=== PATIENT | male | born 1990 | race Caucasian/White ===

== ENCOUNTER 2019-01-31 18:49 | Emergency (ER) | payer OTHER, SELFPAY ==
[2019-01-31] MEDS ORDERED: Hydromorphone 1 mg/ml Ampule IV ONE (19:14)
[2019-01-31] MEDS ORDERED: Sodium Chloride 0.9% 1000 ML 1,000 ML IV STA (19:14)
[2019-01-31] MEDS ORDERED: Zofran 4 MG/2 ML VIAL IV ONE (19:14)
[2019-01-31] MEDS ORDERED: PROTONIX 40 MG IV IV ONE ×2 (19:14→19:33)
[2019-01-31] MEDS ORDERED: THORAZINE 50 MG*** 50 MG in Sodium Chloride 0.9% 100 ML IVPB 100 ML IV ONE (19:14)
[2019-01-31 19:22] LABS: Absolute Neutrophil Ct (ANC) 5.08 (1.4-6.9); BASOPHIL % 0.3 % (0.0-0.4); Basophil (Absolute #) 0.03 (0-0.4); Eosinophil % 6.4 % (0.00-5.0); Eosinophil (Absolute #) 0.67 (0-0.5); Hematocrit 44.1 % (42-50); Hemoglobin 14.8 gm/dl (12.5-18.0); Lymphocyte (Absolute #) 3.66 (1.0-4.6); Lymphocytes % 34.9 % (24.0-44.0); Mean Cell Volume 86.6 fl (78-100); Mean Corpuscular Hemoglobin 29.1 pg (26-32); Mean Corpuscular Hgb Concent. 33.6 g/dl (32-36); Mean Platelet Volume 12.8 fl (6-9.5); Monocyte (Absolute #) 1.04 (0.0-1.3); Monocytes % 9.9 % (0.0-12.0); Neutrophil % 48.5 % (36.0-66.0); Platelet Count 193 K/mm3 (150-450); Red Blood Count 5.09 M/mm3 (4.1-5.6); White Blood Count 10.5 K/mm3 (4.0-10.5)
[2019-01-31 19:33] LABS: ALBUMIN 4.3 g/dL (3.5-5.0); ALKALINE PHOSPHATASE 108 U/L (38-126); AMYLASE 60 U/L (30-110); ANION GAP 13.4 MEQ/L (5-15); BLOOD UREA NITROGEN 12 mg/dL (9-20); CHLORIDE 105 mmol/L (98-107); Calcium 9.8 mg/dL (8.4-10.2); Carbon Dioxide 27 mmol/L (22-30); Creatinine 1 0.77 mg/dL (0.66-1.25); Glucose 82 mg/dL (74-106); LIPASE 84 U/L (23-300); Potassium 3.8 mmol/L (3.5-5.1); SGOT/AST 45 U/L (17-59); SGPT/ALT 139 U/L (0-50); SODIUM 142 mmol/L (137-145); Total Protein 7.9 g/dL (6.3-8.2)
[2019-01-31] MEDS ORDERED: Hydromorphone 1 mg/ml Ampule ONE (19:33)
[2019-01-31] MEDS ORDERED: THORAZINE 50 MG ONE (19:33)
[2019-01-31] MEDS ORDERED: Sodium Chloride 0.9% 100 ML IVPB 100 ML IV ONE (19:34)
[2019-01-31] MEDS ORDERED: Zofran 4 MG/2 ML VIAL ONE (19:55)
[2019-01-31 20:38] LABS: Amourphous Crystal FEW /HPF (NEGATIVE); Appearance CLEAR (CLEAR); Bacteria NONE SEEN /HPF (NEGATIVE); Bilirubin NEGATIVE (NEGATIVE); Blood NEGATIVE Ery/ul (0-5); Glucose NEGATIVE (NEGATIVE); Ketones NEGATIVE (NEGATIVE); Leukocyte Esterase NEGATIVE (NEGATIVE); Nitrite NEGATIVE (NEGATIVE); Protein,Urine Dip NEGATIVE (Negative); Specific Gravity 1.013 (1.005-1.025); Urobilinogen 4 mg/dL (0-1)
[2019-01-31 20:49] LABS: Amphetamine,Urine NEGATIVE (NEGATIVE); Barbiturate,Urine NEGATIVE (NEGATIVE); Benzodiazepine,Urine NEGATIVE (NEGATIVE); Cocaine,Urine NEGATIVE (NEGATIVE); Methadone,Urine NEGATIVE (NEGATIVE); Opiate,Urine NEGATIVE (NEGATIVE); PCP,Urine NEGATIVE (NEGATIVE); THC,Urine POSITIVE (NEGATIVE)
[2019-01-31 21:08] VITALS: BP 116/53; PULSE 69; O2SAT 95
--- NOTE | 2019-01-31 21:18 | ERPHSYRPT ---
- History of Present Illness Time Seen by Provider: 01/31/19 18:55 Historian: patient, family Exam Limitations: no limitations Patient Subjective Stated Complaint: Pt states "I think my gall bladder is acting up again." Triage Nursing Assessment: Pt presented alert and oriented X 3, skin pwd. PT ambulates with an upright steady gait holding his right lower abdomen. Physician History: patient is a 28-year-old white male with a complaint of right upper quadrant pain reason and intermittent leg on for 4-5 years. He states he had a gallbladder ultrasound at this facility some time ago which showed an enlarged gallbladder but that cannot be found in her search of the records. He was seen yesterday at [facility] and had an non-contrast CT of the abdomen which did not clearly DM to delineate the biliary tree or the pancreas. He's had nausea vomiting with bilious emesis he had some chills fever and sweats. He was told to drink admitted at cyclical vomiting syndrome because he smokes pot Timing/Duration: day(s) Activities at Onset: none Quality: cramping Abdominal Pain Onset Location: RUQ, epigastric Pain Radiation: no radiation Severity of Pain-Max: moderate Severity of Pain-Current: moderate Modifying Factors: Improves With: eating Associated Symptoms: nausea, vomiting ( ibuprofen and), No diarrhea (is a 9 and the in one or and and and) Allergies/Adverse Reactions: tramadol Adverse Reaction (Intermediate, Verified 06/20/15 14:23) Nausea Home Medications: No Home Meds [No Home Meds] 1 ea UD 06/20/15 [History] Hx Tetanus, Diphtheria Vaccination/Date Given: Yes Hx Influenza Vaccination/Date Given: No Hx Pneumococcal Vaccination/Date Given: No Immunizations Up to Date: Yes - Review of Systems Constitutional: No Fever, No Chills Eyes: No Symptoms Ears, Nose, & Throat: No Symptoms Respiratory: No Cough, No Dyspnea Cardiac: No Chest Pain, No Edema, No Syncope Abdominal/Gastrointestinal: Abdominal Pain, Nausea, Vomiting, No Diarrhea Genitourinary Symptoms: No Dysuria Musculoskeletal: No Back Pain, No Neck Pain Skin: No Rash Neurological: No Dizziness, No Focal Weakness, No Sensory Changes Psychological: No Symptoms Endocrine: No Symptoms All Other Systems: Reviewed and Negative - Past Medical History Pertinent Past Medical History: Yes Neurological History: No Pertinent History ENT History: No Pertinent History Cardiac History: No Pertinent History Respiratory History: Asthma Endocrine Medical History: No Pertinent History Musculoskeletal History: No Pertinent History GI Medical History: No Pertinent History History: No Pertinent History Psycho-Social History: Depression - Past Surgical History Past Surgical History: No - Social History Smoking Status: Current every day smoker How long have you smoked: years Exposure to second hand smoke: Yes Drug Use: marijuana Patient Lives Alone: No - Nursing Vital Signs Nursing Vital Signs: Initial Vital Signs Temperature 98.6 F 01/31/19 18:54 Pulse Rate 82 01/31/19 18:54 Respiratory Rate 18 01/31/19 18:54 Blood Pressure 147/88 01/31/19 18:54 O2 Sat by Pulse Oximetry 99 01/31/19 18:54 Pain Scale Pain Intensity 10 - Physical Exam General Appearance: mild distress, alert Eye Exam: PERRL/EOMI, eyes nml inspection Ears, Nose, Throat Exam: normal ENT inspection, pharynx normal, moist mucous membranes Neck Exam: normal inspection, non-tender, supple, full range of motion Respiratory Exam: normal breath sounds, lungs clear, No respiratory distress Cardiovascular Exam: regular rate/rhythm, normal heart sounds Gastrointestinal/Abdomen Exam: soft, tenderness, No distention, No mass, No guarding, No rebound Back Exam: normal inspection, normal range of motion, No CVA tenderness, No vertebral tenderness Extremity Exam: normal inspection, normal range of motion, pelvis stable Neurologic Exam: alert, oriented x 3, cooperative, normal mood/affect, nml cerebellar function, sensation nml, No motor deficits Skin Exam: normal color, warm, dry SpO2: 95 - Course Nursing assessment & vital signs reviewed: Yes - CT Exams Abdomen/Pelvis CT Interpretation: Tele-radiologist Report, Other (a CT scan was repeated with IV contrast to better delineate the biliary tree and the pancreas) Ordered Tests: Active Orders 24 hr Category Date Time Status IV Insertion STAT Care 01/31/19 19:14 Active ABDOMEN AND PELVIS W CONTRAST [CT] Stat Exams 01/31/19 19:28 Taken AMYLASE Stat Lab 01/31/19 19:19 Completed CBC W DIFF Stat Lab 01/31/19 19:19 Completed CMP Stat Lab 01/31/19 19:19 Completed LIPASE Stat Lab 01/31/19 19:19 Completed UA W/RFX UR CULTURE Stat Lab 01/31/19 20:29 Completed Urine Triage Profile Stat Lab 01/31/19 20:29 Completed Medication Summary Discontinued Medications Generic Name Dose Route Start Last Admin Trade Name Jasbirq PRN Reason Stop Dose Admin Chlorpromazine HCl Confirm 01/31/19 19:33 Thorazine 50 Mg Administered 01/31/19 19:34 Dose 50 mg .ROUTE .STK-MED ONE Hydromorphone HCl 1 mg 01/31/19 19:14 01/31/19 19:47 Hydromorphone 1 Mg/Ml Ampule IV 01/31/19 19:15 1 mg STAT ONE Administration Hydromorphone HCl Confirm 01/31/19 19:33 Hydromorphone 1 Mg/Ml Ampule Administered 01/31/19 19:34 Dose 1 mg .ROUTE .STK-MED ONE Chlorpromazine HCl 50 mg/ 102 mls @ 100 mls/hr 01/31/19 19:14 01/31/19 19:45 Sodium Chloride IV 01/31/19 20:15 100 mls/hr STAT ONE Administration Sodium Chloride 1,000 mls @ 999 mls/hr 01/31/19 19:14 01/31/19 19:47 Sodium Chloride 0.9% 1000 Ml IV 01/31/19 20:14 999 mls/hr .Q1H1M STA Administration Sodium Chloride Confirm 01/31/19 19:34 Sodium Chloride 0.9% 100 Ml Ivpb Administered 01/31/19 19:35 Dose 100 mls @ ud IV .STK-MED ONE Ondansetron HCl 4 mg 01/31/19 19:14 01/31/19 19:57 Zofran 4 Mg/2 Ml Vial IV 01/31/19 19:15 4 mg STAT ONE Administration Ondansetron HCl Confirm 01/31/19 19:55 Zofran 4 Mg/2 Ml Vial Administered 01/31/19 19:56 Dose 4 mg .ROUTE .STK-MED ONE Pantoprazole Sodium 40 mg 01/31/19 19:14 01/31/19 19:46 Protonix 40 Mg Iv IV 01/31/19 19:15 40 mg STAT ONE Administration Pantoprazole Sodium Confirm 01/31/19 19:33 Protonix 40 Mg Iv Administered 01/31/19 19:34 Dose 40 mg IV .STK-MED ONE Lab/Rad Data: Laboratory Result Diagrams 01/31/19 19:19 01/31/19 19:19 Laboratory Results 01/31/19 01/31/19 01/31/19 Range/Units 20:29 20:29 19:19 WBC (4.0-10.5) K/mm3 RBC (4.1-5.6) M/mm3 Hgb (12.5-18.0) gm/dl Hct (42-50) % MCV (78-100) fl MCH (26-32) pg MCHC (32-36) g/dl RDW (11.5-14.0) % Plt Count (150-450) K/mm3 MPV (6-9.5) fl Gran % (36.0-66.0) % Eos # (Auto) (0-0.5) Absolute Lymphs (auto) (1.0-4.6) Absolute Monos (auto) (0.0-1.3) Lymphocytes % (24.0-44.0) % Monocytes % (0.0-12.0) % Eosinophils % (0.00-5.0) % Basophils % (0.0-0.4) % Absolute Granulocytes (1.4-6.9) Basophils # (0-0.4) Sodium 142 (137-145) mmol/L Potassium 3.8 (3.5-5.1) mmol/L Chloride 105 (98-107) mmol/L Carbon Dioxide 27 (22-30) mmol/L Anion Gap 13.4 (5-15) MEQ/L BUN 12 (9-20) mg/dL Creatinine 0.77 (0.66-1.25) mg/dL Estimated GFR > 60.0 ML/MIN Glucose 82 (74-106) mg/dL Calcium 9.8 (8.4-10.2) mg/dL Total Bilirubin 1.00 (0.2-1.3) mg/dL AST 45 (17-59) U/L ALT 139 H (0-50) U/L Alkaline Phosphatase 108 (38-126) U/L Serum Total Protein 7.9 (6.3-8.2) g/dL Albumin 4.3 (3.5-5.0) g/dL Amylase 60 (30-110) U/L Lipase 84 (23-300) U/L Urine Color YELLOW (YELLOW) Urine Appearance CLEAR (CLEAR) Urine pH 8.0 (5-6) Ur Specific [place] 1.013 (1.005-1.025) Urine Protein NEGATIVE (Negative) Urine Ketones NEGATIVE (NEGATIVE) Urine Blood NEGATIVE (0-5) Umer/ul Urine Nitrite NEGATIVE (NEGATIVE) Urine Bilirubin NEGATIVE (NEGATIVE) Urine Urobilinogen 4 (0-1) mg/dL Ur Leukocyte Esterase NEGATIVE (NEGATIVE) Urine WBC (Auto) 6-10 (0-5) /HPF Urine RBC (Auto) NONE (0-2) /HPF U Epithel Cells (Auto) NONE (FEW) /HPF Urine Bacteria (Auto) NONE SEEN (NEGATIVE) /HPF Amorphous Crystals FEW (NEGATIVE) /HPF Urine Culture Reflexed NO (NO) Urine Glucose NEGATIVE (NEGATIVE) mg/dL Urine Opiates Level NEGATIVE (NEGATIVE) Ur Methadone NEGATIVE (NEGATIVE) Urine Barbiturates NEGATIVE (NEGATIVE) Ur Phencyclidine (PCP) NEGATIVE (NEGATIVE) Urine Amphetamine NEGATIVE (NEGATIVE) U Benzodiazepine Level NEGATIVE (NEGATIVE) Urine Cocaine NEGATIVE (NEGATIVE) Urine Marijuana (THC) POSITIVE (NEGATIVE) 01/31/19 Range/Units 19:19 WBC 10.5 (4.0-10.5) K/mm3 RBC 5.09 (4.1-5.6) M/mm3 Hgb 14.8 (12.5-18.0) gm/dl Hct 44.1 (42-50) % MCV 86.6 (78-100) fl MCH 29.1 (26-32) pg MCHC 33.6 (32-36) g/dl RDW 15.0 H (11.5-14.0) % Plt Count 193 (150-450) K/mm3 MPV 12.8 H (6-9.5) fl Gran % 48.5 (36.0-66.0) % Eos # (Auto) 0.67 H (0-0.5) Absolute Lymphs (auto) 3.66 (1.0-4.6) Absolute Monos (auto) 1.04 (0.0-1.3) Lymphocytes % 34.9 (24.0-44.0) % Monocytes % 9.9 (0.0-12.0) % Eosinophils % 6.4 H (0.00-5.0) % Basophils % 0.3 (0.0-0.4) % Absolute Granulocytes 5.08 (1.4-6.9) Basophils # 0.03 (0-0.4) Sodium (137-145) mmol/L Potassium (3.5-5.1) mmol/L Chloride (98-107) mmol/L Carbon Dioxide (22-30) mmol/L Anion Gap (5-15) MEQ/L BUN (9-20) mg/dL Creatinine (0.66-1.25) mg/dL Estimated GFR ML/MIN Glucose (74-106) mg/dL Calcium (8.4-10.2) mg/dL Total Bilirubin (0.2-1.3) mg/dL AST (17-59) U/L ALT (0-50) U/L Alkaline Phosphatase (38-126) U/L Serum Total Protein (6.3-8.2) g/dL Albumin (3.5-5.0) g/dL Amylase (30-110) U/L Lipase (23-300) U/L Urine Color (YELLOW) Urine Appearance (CLEAR) Urine pH (5-6) Ur Specific [place] (1.005-1.025) Urine Protein (Negative) Urine Ketones (NEGATIVE) Urine Blood (0-5) Umer/ul Urine Nitrite (NEGATIVE) Urine Bilirubin (NEGATIVE) Urine Urobilinogen (0-1) mg/dL Ur Leukocyte Esterase (NEGATIVE) Urine WBC (Auto) (0-5) /HPF Urine RBC (Auto) (0-2) /HPF U Epithel Cells (Auto) (FEW) /HPF Urine Bacteria (Auto) (NEGATIVE) /HPF Amorphous Crystals (NEGATIVE) /HPF Urine Culture Reflexed (NO) Urine Glucose (NEGATIVE) mg/dL Urine Opiates Level (NEGATIVE) Ur Methadone (NEGATIVE) Urine Barbiturates (NEGATIVE) Ur Phencyclidine (PCP) (NEGATIVE) Urine Amphetamine (NEGATIVE) U Benzodiazepine Level (NEGATIVE) Urine Cocaine (NEGATIVE) Urine Marijuana (THC) (NEGATIVE) - Progress Progress: improved - Departure Departure Disposition: Home Clinical Impression: Enteritis Condition: Stable Critical Care Time: No Referrals: DOCTOR,NO FAMILY [Primary Care Provider] - Prescriptions: Hydrocodone/APAP 5-325 Tab^^^ [[place] 5-325 Tablet^^^] 1 tab PO Q6HPRN PRN #10 tablet MDD 6 PRN Reason: Pain Ondansetron ODT 4 MG [Zofran Odt 4 mg] 4 mg PO Q6H PRN PRN #10 tab.rapdis PRN Reason: Vomiting Metronidazole 500 mg [Flagyl 500 MG] 500 mg PO TID #21 tablet
--- NOTE | 2019-02-01 08:46 | XRAY ---
Indication: Right upper quadrant pain 1 week. Nausea, vomiting, and diarrhea. Multiple contiguous axial images obtained through the abdomen and pelvis using 80 cc Isovue 370 contrast only. Comparison: February 28, 2012. Lung bases demonstrates minimal bilateral dependent atelectasis. Heart is not enlarged. Stomach is distended with food/fluid. Noncontrasted stomach and bowel loops appear nonobstructed. Normal appendix. No free fluid/air. Remaining liver, gallbladder, pancreas, spleen, adrenal glands, kidneys, ureters, bladder, and aorta appear unremarkable. No pathologic retroperitoneal lymphadenopathy. Osseous structures intact. Impression: CT abdomen/pelvis with contrast exam is negative. Comment: Preliminary interpretation was made by [facility]. No critical discrepancy. CT DI 3.16
== END 2019-01-31 21:43 | disposition home or self-care (01) ==
LOC: ED 18:49
DX: K52.9 Noninfective gastroenteritis and colitis, unspecified (principal)
CPT/HCPCS: 36000; 36415; 74177; 80053; 80307; 81001; 82150; 83690; 85025; 96360; 96361; 96365; 96374; 96375; 99284; J1170; J2405; J3230

== ENCOUNTER 2022-02-28 15:15 | Emergency (ER) | payer MEDICAID, OTHER ==
--- NOTE | 2022-02-28 15:21 | ERPHSYRPT ---
- History of Present Illness Time Seen by Provider: 02/28/22 15:21 Source: patient Exam Limitations: no limitations Physician History: This is a 31-year-old white male who is a little lethargic but arousable who has not been eating or drinking well last 4 days. He has had intermittent fevers. He states he has a headache and he aches all over. He has no known exposures to individuals with similar symptoms or individuals that have been diagnosed with flus of any type. He has no chest pain. He has no complaints of shortness of breath and he has no abdominal pain. Timing/Duration: day(s) (4), worse Severity: moderate Associated Symptoms: headaches, loss of appetite, weakness, No shortness of breath, No chest pain Allergies/Adverse Reactions: tramadol Adverse Reaction (Intermediate, Verified 02/28/22 15:24) Nausea Hx Tetanus, Diphtheria Vaccination/Date Given: Yes Hx Influenza Vaccination/Date Given: No Hx Pneumococcal Vaccination/Date Given: No Travel Risk - International Travel Have you traveled outside of the country in past 3 weeks: No - Coronavirus Screening Are you exhibiting any of the following symptoms?: Yes Symptoms: Fever, Headaches/Body Aches/Fatigue Close contact with a COVID-19 positive Pt in past 14-21 Days: No - Review of Systems Constitutional: Weakness Eyes: No Symptoms Ears, Nose, & Throat: No Symptoms Respiratory: No Symptoms Cardiac: No Symptoms Abdominal/Gastrointestinal: Diarrhea Genitourinary Symptoms: No Symptoms Musculoskeletal: Arthralgias, Myalgias Skin: Rash (Couple of days ago. Has now resolved) Neurological: Headache Psychological: No Symptoms Endocrine: No Symptoms Hematologic/Lymphatic: No Symptoms Immunological/Allergic: No Symptoms All Other Systems: Reviewed and Negative - Past Medical History Pertinent Past Medical History: Yes Neurological History: No Pertinent History ENT History: No Pertinent History Cardiac History: No Pertinent History Respiratory History: Asthma Endocrine Medical History: No Pertinent History Musculoskeletal History: No Pertinent History GI Medical History: No Pertinent History History: No Pertinent History Psycho-Social History: Depression - Past Surgical History Past Surgical History: No - Social History Smoking Status: Current every day smoker How long have you smoked: years Exposure to second hand smoke: Yes Drug Use: marijuana Patient Lives Alone: No - Nursing Vital Signs Nursing Vital Signs: Initial Vital Signs Temperature 98.4 F 02/28/22 15:26 Pulse Rate 75 02/28/22 15:26 Respiratory Rate 18 02/28/22 15:26 Blood Pressure 127/63 02/28/22 15:26 O2 Sat by Pulse Oximetry 98 02/28/22 15:26 Pain Scale Pain Intensity 5 - Physical Exam General Appearance: lethargy (Mild but arousable), thin Eye Exam: PERRL/EOMI, eyes nml inspection Ears, Nose, Throat Exam: normal ENT inspection, dry mucous membranes Neck Exam: normal inspection, non-tender, supple, full range of motion Respiratory Exam: normal breath sounds, lungs clear, airway intact, No chest tenderness, No respiratory distress Cardiovascular Exam: regular rate/rhythm, normal heart sounds, normal peripheral pulses Gastrointestinal/Abdomen Exam: soft, normal bowel sounds, No tenderness Rectal Exam: not done Back Exam: normal inspection, normal range of motion, No CVA tenderness, No vertebral tenderness Extremity Exam: normal inspection, normal range of motion, pelvis stable Neurologic Exam: oriented x 3, cooperative, prosthetic dentist II-XII nml as tested, other (Generalized weakness and mild lethargy. He is arousable) Skin Exam: normal color, warm, dry Lymphatic Exam: No adenopathy SpO2 Interpretation: normal O2 Delivery: Room Air - Course Nursing assessment & vital signs reviewed: Yes Ordered Tests: Active Orders 24 hr Category Date Time Status Clean Catch Urine Specimen STAT Care 02/28/22 15:40 Active IV Insertion STAT Care 02/28/22 15:35 Active Pulse Oximetry (ED) STAT Care 02/28/22 15:35 Active BLOOD CULTURE Stat Lab 02/28/22 15:35 Ordered CBC W DIFF Stat Lab 02/28/22 15:35 Ordered CMP Stat Lab 02/28/22 15:35 Ordered Lactic Acid Stat Lab 02/28/22 15:35 Ordered [place] Screen Stat Lab 02/28/22 Ordered UA W/RFX CULTURE Stat Lab 02/28/22 Ordered Urine Triage Profile Stat Lab 02/28/22 Ordered Medication Summary Generic Name Dose Route Start Last Admin Trade Name Freq PRN Reason Stop Dose Admin Sodium Chloride 1,000 mls @ 999 mls/hr 02/28/22 15:35 02/28/22 16:06 Sodium Chloride 0.9% 1000 Ml IV 02/28/22 16:35 Not Given .Q1H1M STA Discontinued Medications Generic Name Dose Route Start Last Admin Trade Name Freq PRN Reason Stop Dose Admin Ondansetron HCl 4 mg 02/28/22 15:35 02/28/22 16:07 Ondansetron Hcl 4 Mg/2 Ml Vial IV 02/28/22 15:36 Not Given STAT STA Lab/Rad Data: Laboratory Results 02/28/22 Range/Units 15:33 Influenza Type A Ag NEGATIVE (NEGATIVE) Influenza Type B Ag NEGATIVE (NEGATIVE) RSV (PCR) NEGATIVE (Negative) SARS-CoV-2 (PCR) POSITIVE A (NEGATIVE) Group A Strep Antibody NOT DETECTED (NEGATIVE) - Progress Progress: unchanged Progress Note: 02/28/22 15:46 Patient refused placement of IV 02/28/22 15:50 I asked the patient a second time whether or not he would allow us to place an IV. I discussed the risks of placing an IV which are very low. I also discussed the benefits of placing an IV and him. He refuses. He does not want any blood drawn. He will stay until results of the viral swabs and strep test. We will have him sign refusal of care form. 02/28/22 16:32 Medical decision making: This patient has a COVID-19 infection. He does not want an IV placed. He does not want to be admitted or transferred. He is refusing any blood work. I did provide him with instructions for pain and fever control and sent a prescription of Zofran to his pharmacy. Patient will sign out AGAINST MEDICAL ADVICE as well as a refusal of care and work-up here in the emergency department other than the strep and viral swabs. Counseled pt/family regarding: lab results, diagnosis - Departure Departure Disposition: AMA (covid) Clinical Impression: COVID-19 Condition: Fair Critical Care Time: No Referrals: DARIEN MOURA MD [Primary Care Provider] - Follow up/PCP as directed Additional Instructions: Drink plenty of liquids. Use Tylenol and ibuprofen for fever and pain control. Return to the emergency department if symptoms persist or worsen. Prescriptions: Ondansetron ODT 4 MG [Zofran Odt 4 mg] 4 mg PO Q6H PRN PRN #10 tablet PRN Reason: Vomiting
[2022-02-28 15:33] VITALS: PULSE 75; O2SAT 98
[2022-02-28] MEDS ORDERED: Zofran 4 MG/2 ML VIAL IV STA (15:35)
[2022-02-28] MEDS ORDERED: Sodium Chloride 0.9% 1000 ML 1,000 ML IV STA (15:35)
[2022-02-28 16:11] LABS: Group A Strep NOT DETECTED (NEGATIVE)
[2022-02-28 16:22] VITALS: BP 134/81
[2022-02-28 16:22] LABS: INFLUENZA A NEGATIVE (NEGATIVE); INFLUENZA B NEGATIVE (NEGATIVE); RESPIRATORY SYNCTIAL VIRUS NEGATIVE (Negative)
[2022-02-28 16:27] LABS: SARS-CoV-2 Xpert Express POSITIVE (NEGATIVE)
== END 2022-02-28 16:50 | disposition left against medical advice (07) ==
LOC: ED 15:15
DX: U07.1 COVID-19 (principal); R50.9 Fever, unspecified; M79.10 Myalgia, unspecified site
CPT/HCPCS: 0241U; 87651; 94760; 99283

== ENCOUNTER 2022-04-05 13:11 | Emergency (ER) | payer MEDICAID ==
--- NOTE | 2022-04-05 13:50 | ERPHSYRPT ---
- History of Present Illness Source: patient, family Exam Limitations: no limitations Physician History: INdependent interviews with pt and family. collaborating Hx below: Pt is 31 yr old recent paraplegic, learning to ambulate again, and was trying zayas a few days but it catches and causes trauma by catheter to urethra. He has been straight cathing OK prior but got UTIs. On meds now for Tx with Dr. Alexis. No abd pain no fever, No N or V. no other c/o of injuries. minimal tenderness at urethra no erythema, no swelling. no mass or peritoneal signs or distension penis feels normal to palp without corpora defects no bruising. testes normal to palp. Timing/Duration: yesterday Activites at Onset: other (walkimng) Quality: burning Onset Location: urethral Pain Radiation: urethral Severity of Pain-Max: moderate Severity of Pain-Current: moderate Modifying Factors: Improves With: walking Associated Symptoms: No abdominal pain, No fever, No diaphoresis, No urinary frequency Prior abdominal problems: none Sexual intercourse history: non-contributory Allergies/Adverse Reactions: tramadol Adverse Reaction (Intermediate, Verified 04/05/22 13:44) Nausea Home Medications: Doxycycline Hyclate 100 mg [Vibramycin 100 MG] 100 mg PO BID 04/02/22 [History] Iron,Carb/Vit C/Vit B12/Folic [Iron 100 Plus Tablet] 1 each PO DAILY 04/02/22 [History] Mecobalamin [B12 Active] 500 mcg PO DAILY 04/02/22 [History] rifAMPin [Rifampin] 300 mg PO BID 04/02/22 [History] Ciprofloxacin [Cipro 500 MG] 1 tab PO BID 04/05/22 [History] Tamsulosin HCl 0.4 mg [Flomax 0.4 MG] 1 cap PO DAILY 04/05/22 [History] Hx Tetanus, Diphtheria Vaccination/Date Given: Yes Hx Influenza Vaccination/Date Given: No Hx Pneumococcal Vaccination/Date Given: No Travel Risk - Vaccine Status Have you recieved a Covid-19 vaccination: No - Past Medical History Pertinent Past Medical History: Yes Neurological History: No Pertinent History ENT History: No Pertinent History Cardiac History: No Pertinent History Respiratory History: Asthma Endocrine Medical History: No Pertinent History Musculoskeletal History: No Pertinent History GI Medical History: No Pertinent History History: No Pertinent History Psycho-Social History: Depression Other Medical History: parapelgic - Past Surgical History Past Surgical History: No Neuro Surgical History: No Pertinent History Cardiac: No Pertinent History Respiratory: No Pertinent History Gastrointestinal: No Pertinent History Genitourinary: No Pertinent History Musculoskeletal: No Pertinent History Male Surgical History: No Pertinent History - Social History Smoking Status: Current every day smoker How long have you smoked: years Exposure to second hand smoke: Yes Drug Use: marijuana Patient Lives Alone: No - Review of Systems Constitutional: No Fever, No Chills Eyes: No Symptoms Ears, Nose, & Throat: No Symptoms Respiratory: No Cough, No Dyspnea Cardiac: No Chest Pain, No Edema, No Syncope Abdominal/Gastrointestinal: No Abdominal Pain, No Nausea, No Vomiting, No Diarr hea Genitourinary Symptoms: Other (urethral pain after trauma), No Dysuria Musculoskeletal: No Back Pain, No Neck Pain Skin: No Symptoms, No Rash Neurological: No Dizziness, No Focal Weakness, No Sensory Changes Psychological: No Symptoms Endocrine: No Symptoms Hematologic/Lymphatic: No Symptoms Immunological/Allergic: No Symptoms All Other Systems: Reviewed and Negative - Nursing Vital Signs Nursing Vital Signs: Initial Vital Signs Temperature 98 F 04/05/22 13:21 Pulse Rate 97 H 04/05/22 13:21 Respiratory Rate 18 04/05/22 13:21 Blood Pressure 153/96 04/05/22 13:21 O2 Sat by Pulse Oximetry 99 04/05/22 13:21 Pain Scale Pain Intensity 6 - Physical Exam General Appearance: no apparent distress, alert Eye Exam: PERRL/EOMI Ears, Nose, Throat Exam: pharynx normal, moist mucous membranes Neck Exam: normal inspection, supple Respiratory Exam: normal breath sounds, lungs clear Cardiovascular Exam: regular rate/rhythm, No edema Gastrointestinal/Abdomen Exam: soft, No tenderness Rectal Exam: deferred Male Genital Exam: normal genitalia, no hernia, No epididymal tenderness, No hydrocele, No inguinal tenderness, No scrotum tenderness (R), No scrotum tenderness (L), No testicular tenderness (R), No testicular tenderness (L), No urethral discharge, No scrotal swellling Back Exam: normal inspection, No CVA tenderness Extremity Exam: normal inspection, normal range of motion, No pedal edema Neurologic Exam: alert, oriented x 3, cooperative, sensation nml, No motor deficits Skin Exam: normal color, warm, dry, No rash SpO2 Interpretation: normal SpO2: 98 O2 Delivery: Room Air - Course Nursing assessment & vital signs reviewed: Yes - Radiology Exams Pelvis X-ray Interpretation: Interpreted by me, Reviewed by me, Other (No major abnormality seen ) Ordered Tests: Active Orders 24 hr Category Date Time Status KUB Stat Exams 04/05/22 13:45 Taken CBC W DIFF Stat Lab 04/05/22 14:05 Received CMP Stat Lab 04/05/22 14:05 Received UA W/RFX UR CULTURE Stat Lab 04/05/22 13:58 Received - Progress Progress: improved, re-examined Progress Note: 04/05/22 14:[address] Alexis and he wishes the cath to stay in for prostate swelling/infection until f/u Friday. Pt is advised that we do not have his UA/labs back yet and that we may be missing serious conditions - he understands but prefers DC and outpt f/u without further delays - he has normal mental status and the capacity to make this choice. Discussed with Dr.: Other (Dr. Alexis) Will see patient in: office (Friday) Counseled pt/family regarding: lab results, diagnosis, need for follow-up, rad results - Departure Departure Disposition: Home Clinical Impression: Prostate INfection URinary obs - treated, UTI (urinary tract infection) Condition: Good Critical Care Time: No Referrals: KELLI ALEXIS MD [Primary Care Provider] - Follow up/PCP as directed Instructions: Prostatitis (DC), Neurogenic Bladder, Adult (DC), Urinary Tract Infection, Adult (DC) Additional Instructions: We did not have time to get back your results yet and conditions could be still developing of concern. Please follow-up Friday with your Dr,. for the catheter as planned and return meantime if any symptoms or concerns, especially abdominal pain, vomiting , or fever.. Followup your blood pressure also with your
[2022-04-05 13:53] VITALS: O2SAT 98
[2022-04-05 14:05] LABS: Absolute Neutrophil Ct (ANC) 4.33 x10^3/uL (1.4-6.9); BASOPHIL % 0.6 % (0.0-0.4); Basophil (Absolute #) 0.05 x10^3/uL (0-0.4); Eosinophil % 3.8 % (0.00-5.0); Eosinophil (Absolute #) 0.33 x10^3/uL (0-0.5); Hematocrit 36.1 % (42-50); Hemoglobin 11.9 g/dL (12.5-18.0); IMMATURE GRAN # 0.08 x10^3u/L (0.00-0.03); IMMATURE GRAN % 0.9 % (0.00-0.4); Lymphocyte (Absolute #) 3.29 x10^3/uL (1.0-4.6); Lymphocytes % 37.6 % (24.0-44.0); Mean Cell Volume 91.2 fL (78-100); Mean Corpuscular Hemoglobin 30.1 pg (26-32); Mean Platelet Volume 10.3 fL (7.5-11.0); Monocyte (Absolute #) 0.68 x10^3/uL (0.0-1.3); Monocytes % 7.8 % (0.0-12.0); Neutrophil % 49.3 % (36.0-66.0); Platelet Count 213 x10^3/uL (150-450); Red Blood Count 3.96 x10^6/uL (4.1-5.6); Red Cell Distribution Width 14.1 % (11.5-14.0); White Blood Count 8.8 x10^3/uL (4.0-10.5)
[2022-04-05 14:14] LABS: Appearance Turbid (Clear); Bacteria None Seen /HPF (None Seen); Bilirubin Small (Negative); Blood Trace (Negative); Epithelial Cells None Seen /HPF (None Seen); Glucose, Urine Negative (Negative); Hyaline Casts NONE SEEN /LPF (0-2); Ketones Trace (Negative); Leukocyte Esterase Small (Negative); Nitrite Negative (Negative); Protein,Urine Dip 30 (Negative); Specific Gravity 1.025 (1.005-1.030)
[2022-04-05 14:23] LABS: ALBUMIN 4.1 g/dL (3.5-5.0); ALKALINE PHOSPHATASE 78 U/L (38-126); ANION GAP 8.4 MEQ/L (5-15); BLOOD UREA NITROGEN 16 mg/dL (9-20); CHLORIDE 105 mmol/L (98-107); Calcium 9.6 mg/dL (8.4-10.2); Carbon Dioxide 28 mmol/L (22-30); Creatinine 1 0.57 mg/dL (0.66-1.25); EST GLOMERULAR FILTRATION RATE > 60.0 ML/MIN; Glucose 109 mg/dL (74-106); Potassium 3.9 mmol/L (3.5-5.1); SGOT/AST 26 U/L (17-59); SGPT/ALT 37 U/L (0-50); SODIUM 138 mmol/L (137-145); Total Protein 7.7 g/dL (6.3-8.2)
[2022-04-05 14:37] LABS: ADD URINE CULTURE? NO (NO)
--- NOTE | 2022-04-05 14:42 | XRAY ---
Indication: Valero placement. Comparison: None KUB nonacute and nonobstructed with moderate diffuse scattered colonic fecal debris including rectum. Valero balloon tip projects base of pelvis presumed in bladder. Solid organs and osseous structures unremarkable.
[2022-04-05 14:52] VITALS: BP 123/76; PULSE 89
== END 2022-04-05 15:05 | disposition home or self-care (01) ==
LOC: ED 13:11
DX: N41.9 Inflammatory disease of prostate, unspecified (principal); N13.9 Obstructive and reflux uropathy, unspecified; N39.0 Urinary tract infection, site not specified; Z79.899 Other long term (current) drug therapy; Z28.310 Unvaccinated for COVID-19; Z72.0 Tobacco use
CPT/HCPCS: 36415; 74018; 80053; 81001; 85025; 99283